=== PATIENT | female | born 1970 | race Caucasian/White ===

== ENCOUNTER 2019-04-12 10:00 | Outpatient (CLI) | payer MEDICARE | END 2019-04-12 11:00 | disposition home or self-care (01) | LOC: D.MAMMO 10:00 | PROVIDERS: ATTEND Family Medicine | DX: Z12.31 Encounter for screening mammogram for malignant neoplasm of breast (principal) ==

== ENCOUNTER → 2019-05-15 16:47 | Outpatient (CLI) | payer MEDICARE | END | disposition home or self-care (01) | LOC: D.LABREF 16:47 | PROVIDERS: ATTEND Surgery | DX: L72.3 Sebaceous cyst (principal) ==

== ENCOUNTER 2019-06-23 14:40 | Emergency (ER) | payer MEDICARE ==
[~2019-06-23] VITALS: Ht 160 cm; Wt 124.1 kg
[2019-06-23 14:59] VITALS: Ht 160 cm; Wt 124.1 kg
[2019-06-23] MEDS ORDERED: PAXIL20 MG PO (15:13)
[2019-06-23] MEDS ORDERED: GEODON60 MG PO (15:13)
[2019-06-23] MEDS ORDERED: VISTARIL50 MG PO (15:14)
[2019-06-23] MEDS ORDERED: TRAZODONE HCL150 MG PO (15:14)
[2019-06-23] MEDS ORDERED: GABAPENTIN100 MG PO (15:15)
[2019-06-23] MEDS ORDERED: MONODOX100 MG PO (15:15)
[2019-06-23] MEDS ORDERED: XIGDUO XR 5 MG1 EACH PO (15:15)
[2019-06-23] MEDS ORDERED: MOBIC7.5 MG PO (15:15)
[2019-06-23] MEDS ORDERED: LEVEMIR IN100 UNITS/ SC (15:17)
--- NOTE | 2019-06-23 15:30 | NUR ---
According to the suicide assessment the patient score is high and she will require a 1:1 suicide observation. A suicide resource flyer and safety plan are provided.
[2019-06-23 15:35] LABS: BASOPHILS 0.3 % (0-2); EOSINOPHILS 0.7 % (0-7); HEMATOCRIT 53.5 % (36.0-48.0); HEMOGLOBIN 17.8 g/dL (12-16); IMMATURE GRANULOCYTES 0.5 % (0-5); LYMPHOCYTES 32.6 % (15-50); MCH 30.4 pg (26.0-34.0); MCHC 33.3 g/dL (31.0-37.0); MCV 91.5 fL (80.0-100.0); MEAN PLATELET VOLUME 9.7 fL (7.4-10.4); MONOCYTES 5.3 % (2-11); NEUTROPHILS 60.6 % (40-80); PLATELET COUNT 226 10x3/uL (130-400); RBC 5.85 10x6/uL (4.00-5.40); RDW 14.5 % (11.5-14.5); WBC 11.9 10x3/uL (4.8-10.8)
[2019-06-23 15:37] LABS: BILIRUBIN NEGATIVE (NEGATIVE); GLUCOSE 1000 mg/dL (NEGATIVE); KETONE NEGATIVE (NEGATIVE); NITRITE NEGATIVE (NEGATIVE); UROBILINOGEN NORMAL (NORMAL)
[2019-06-23 15:38] LABS: HCG URINE NEGATIVE (NEGATIVE)
[2019-06-23 15:46] LABS: ANION GAP 12.3 mmol/L (8-16); CALCIUM 8.6 mg/dL (8.5-10.1); CARBON DIOXIDE 23.9 mmol/L (21.0-32.0); POTASSIUM - SERUM 4.2 mmol/L (3.5-5.1)
[2019-06-23 15:50] LABS: UDS - AMPHET NEGATIVE QUAL (NEGATIVE); UDS - BARB NEGATIVE QUAL (NEGATIVE); UDS - BENZO NEGATIVE QUAL (NEGATIVE); UDS - COCAINE NEGATIVE QUAL (NEGATIVE); UDS - OPIATE NEGATIVE QUAL (NEGATIVE); UDS - PCP NEGATIVE QUAL (NEGATIVE); UDS - THC NEGATIVE QUAL (NEGATIVE)
[2019-06-23 15:50] LABS: ACETAMINOPHEN 0.5 ug/mL (10.0-30.0); ALBUMIN 3.2 g/dL (3.4-5.0); BILIRUBIN - TOTAL 0.29 mg/dL (0.2-1.3); MAGNESIUM - SERUM 1.6 mg/dL (1.8-2.4); PROTEIN - SERUM 6.6 g/dL (6.4-8.2)
[2019-06-23 18:22] VITALS: BP 134/62
== END 2019-06-23 18:41 ==
LOC: D.ER 14:40
PROVIDERS: Family Medicine
DX: R45.851 Suicidal ideations (principal); E11.40 Type 2 diabetes mellitus with diabetic neuropathy, unspecified; Z79.4 Long term (current) use of insulin

== ENCOUNTER → 2019-08-18 11:38 | Outpatient (CLI) | payer MEDICARE ==
[2019-06-23 14:59] VITALS: BMI 48.4
[~2019-08-18 11:38] MED LIST: GABAPENTIN100 MG PO; GEODON60 MG PO; LEVEMIR IN100 UNITS/ SC; MOBIC7.5 MG PO; MONODOX100 MG PO; PAXIL20 MG PO; TRAZODONE HCL150 MG PO; VISTARIL50 MG PO; XIGDUO XR 5 MG1 EACH PO
== END | disposition home or self-care (01) ==
LOC: D.US 11:38
PROVIDERS: ATTEND Family Medicine
DX: M79.604 Pain in right leg (principal); R60.0 Localized edema

== ENCOUNTER → 2020-04-18 16:01 | Outpatient (CLI) | payer MEDICARE, OTHER ==
[2019-06-23 14:59] VITALS: BMI 48.4
== END | disposition home or self-care (01) ==
LOC: D.US 15:30
PROVIDERS: ATTEND Family Medicine
DX: M79.604 Pain in right leg (principal); D75.1 Secondary polycythemia

== ENCOUNTER → 2020-06-14 12:50 | Outpatient (CLI) | payer MEDICARE, OTHER ==
[2019-06-23 14:59] VITALS: BMI 48.4
== END | disposition home or self-care (01) ==
LOC: D.US 06-07 11:00
PROVIDERS: ATTEND Nurse Practitioner
DX: R92.2 Inconclusive mammogram (principal)

== ENCOUNTER 2020-06-27 11:00 | Outpatient (CLI) | payer MEDICARE, OTHER ==
[2019-06-23 14:59] VITALS: BMI 48.4
== END 2020-06-27 11:30 | disposition home or self-care (01) ==
LOC: D.MAMMO 11:00
PROVIDERS: ATTEND Nurse Practitioner
DX: R92.2 Inconclusive mammogram (principal)